=== PATIENT | male | born 1990 | race Caucasian/White ===

== ENCOUNTER 2019-06-27 18:02 | Emergency (ER) | payer SELFPAY ==
[~2019-06-27] VITALS: Ht 165.1 cm; Wt 72.7 kg
[2019-06-27 18:29] VITALS: BP 138/83; Ht 165.1 cm; Wt 72.7 kg
[2019-06-27] MEDS ORDERED: ORAL ANALGESIC9 GM TOPICAL (18:31)
[2019-06-27] MEDS ORDERED: [UNRECOGNIZED DRUG - REMARK] PO (18:31)
[2019-06-27] MEDS ORDERED: PENICILLIN V P500 MG PO (19:06)
== END 2019-06-27 19:15 | disposition home or self-care (01) ==
LOC: D.ER 18:02
DX: K04.7 Periapical abscess without sinus (principal); F17.210 Nicotine dependence, cigarettes, uncomplicated; F32.9 Major depressive disorder, single episode, unspecified